=== PATIENT | female | born 1980 | race Caucasian/White ===

== ENCOUNTER → 2016-05-09 | Day surgery (SDC) | payer OTHER ==
[~2016-05-09] MED LIST: ACET325T9 PO; ALPR0.5T PO; FENTANYL PF 100 MCG/2 ML VIAL. ONE; IV RINGERS,LACTATED 1000ML 1,000 ML IV SCH; LIDOCAINE 2% PF Vial for OR 5 ML VIAL. ONE; LOPE1LIQ7 PO; NORE-88 PO; OMEP20TA PO; ONDA4TAB7 PO; PROPOFOL 20 ML IV ONE
[2016-05-09 11:15] VITALS: BP 153/85
--- NOTE | 2016-05-13 08:04 | PATHOLOGY ---
PATHOLOGY REPORT * * * * * * * * FINAL DIAGNOSIS: Duodenal biopsy: - No significant pathologic abnormalities. COMMENT: Sections of the duodenal biopsy reveal multiple segments of duodenal and small intestine mucosa. Where best oriented, the mucosal villi appear normal. There are no sprue-like changes or significant inflammatory changes. (JPM:csd; d/t: 05/12/2016) REPORT ELECTRONICALLY SIGNED BY: Efrain Burton M.D. DATE/TIME: 05/13/2016 08:03 * * * * * * * * GROSS PATHOLOGY: Received in formalin labeled "Dangelo Che, duodenum biopsies," are multiple (greater than 10) segments of naranjo soft tissue measuring 1.6 x 1.4 x 0.2 cm in aggregate dimensions and ranging from 0.3 to 0.6 cm in maximum dimension. The specimen is submitted entirely in cassette A1. (CAA; 05/09/2016) INITIAL CPT CODE(S): A; 45462 Professional services performed by [facility] [address] Technical services performed by [facility] at [address] [place] [address]. SPECIMEN(S) RECEIVED: A.Duodenum biopsy CLINICAL HISTORY: Epigastric pain PATIENT: DANGELO CHE /AGE: 1012/25/1980 (Age: 35) PATIENT #: [id number] ALT CASE #: SPECIMEN COLLECTION DATE: 05/09/2016 SPECIMEN RECEIVED DATE: 05/09/2016 [facility] - [address] [place] [address] - PHONE: [phone] * * * END OF REPORT * * *
== END | disposition home or self-care (01) ==
LOC: ENDOS 10:01
PROVIDERS: ATTEND Internal Medicine Gastroenterology
DX: K29.50 Unspecified chronic gastritis without bleeding (principal); K31.9 Disease of stomach and duodenum, unspecified; K21.9 Gastro-esophageal reflux disease without esophagitis; M19.90 Unspecified osteoarthritis, unspecified site; F41.9 Anxiety disorder, unspecified; D64.9 Anemia, unspecified; Z87.39 Personal history of other diseases of the musculoskeletal system and connective tissue; Z72.89 Other problems related to lifestyle; Z86.14 Personal history of Methicillin resistant Staphylococcus aureus infection
CPT/HCPCS: 43239; J2704; J3010